=== PATIENT | female | born 1950 | race Caucasian/White ===

== ENCOUNTER → 2017-11-05 12:22 | Outpatient (CLI) | payer MEDICARE, SELFPAY ==
--- NOTE | 2017-11-05 | DI.MG.S_ITS ---
BILATERAL DIGITAL SCREENING MAMMOGRAM 3D/2D WITH CAD: 11/05/2017 CLINICAL: Routine screening. Family history of breast cancer. Comparison is made to exams dated: 10/04/2012 mammogram, 07/24/2011 mammogram, and 06/10/2010 mammogram - [facility]. The tissue of both breasts is heterogeneously dense. This may lower the sensitivity of mammography. Current study was also evaluated with a Computer Aided Detection (CAD) system. No significant masses, calcifications, or other findings are seen in either breast. There has been no significant interval change. IMPRESSION: NEGATIVE There is no mammographic evidence of malignancy. A 1 year screening mammogram is recommended. This exam was interpreted at Station ID: [id number]. NOTE: For mammograms, a report in lay terms will be sent to the patient. Approximately 15% of breast malignancies will not be visualized mammographically. In the management of a palpable breast mass, a negative mammogram must not discourage biopsy of a clinically suspicious lesion. Electronically Signed By: Tadeo [email or web address]:11/05/2017 16:37:46 letter sent: Normal Exam ACR BI-RADS Category 1: Negative [id number]
== END ==
PROVIDERS: PCP Internal Medicine; Visit Provider Internal Medicine
DX: Z12.31 Encounter for screening mammogram for malignant neoplasm of breast (principal); Z80.3 Family history of malignant neoplasm of breast; M85.89 Other specified disorders of bone density and structure, multiple sites
CPT/HCPCS: 77063; 77067; 77080

== ENCOUNTER → 2017-11-16 11:01 | Outpatient (CLI) | payer MEDICARE, SELFPAY ==
[2017-11-16 15:59] LABS: Hep C Virus Ab w/Reflex Quant NEGATIVE s/c (NEGATIVE)
[2017-11-23 15:07] LABS: Rapid Plasma Reagin NON-REACTIVE
== END ==
PROVIDERS: PCP Internal Medicine; Visit Provider Specialist
DX: Z11.3 Encounter for screening for infections with a predominantly sexual mode of transmission (principal)
CPT/HCPCS: 36415; 86592; 86803